=== PATIENT | male | born 1995 | race African-American/Black ===

== ENCOUNTER 2018-03-05 18:18 | Emergency (ER) | payer SELFPAY ==
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
[2018-03-05 18:36] VITALS: BP 131/75
[2018-03-05] MEDS: Lidocaine 2% 20ml Vial ONE (20:00)
[2018-03-05] MEDS: ACETAMINOPHEN 325 MG TABLET PO ONE (20:00)
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
--- NOTE | 2018-03-05 20:17 | Diagnostic Imaging Report ---
MORELIA VALLADARES [facility] [address] [facility] [address] [address] Report Submission Date: Mar 05, 2018 7:51:34 PM CDT Patient Study Name: JANINE PALMA Date: Mar 05, 2018 7:19:11 PM CDT Modality Type: CT\SR Gender: M Description: CT MAXILLOFACIAL W/O D : 94 Institution: [facility] Physician: MORELIA VALLADARES CT facial bones Clinical history: Facial trauma Findings: The mandible intact. Zygomatic arches are intact. Maxillary sinus mcmahon are intact. There is complete opacification of the left maxillary sinus. The nasal bone are intact. The orbital mcmahon are intact. No maxillofacial fracture identified.T here is complete opacification of left maxillary sinus. There are right maxillary sinus mucous retention cysts and sphenoid sinus mucus retention cyst. Impression: 1. No acute maxillofacial fracture. 2. Left maxillary sinusitis Electronically signed on Mar 05, 2018 7:51:34 PM CDT by: Nasir WOMACK
[2018-03-05] MEDS: Lidocaine 2% 20ml Vial IP ONE (20:20)
[2018-03-05] MEDS: CLINDAMYCIN HCL 150 MG CAPSULE PO ONE (20:57)
== END 2018-03-05 21:05 | disposition home or self-care (01) ==
LOC: ED 18:18
DX: S09.90XA Unspecified injury of head, initial encounter (principal); S01.511A Laceration without foreign body of lip, initial encounter; W19.XXXA Unspecified fall, initial encounter; Y92.410 Unspecified street and highway as the place of occurrence of the external cause; Y93.9 Activity, unspecified; Y99.9 Unspecified external cause status
CPT/HCPCS: 70450; 70486; 72125; A9270; 12052; 96372; 99284

== ENCOUNTER 2018-03-11 11:36 | Emergency (ER) | payer SELFPAY ==
[2018-03-11 11:49] VITALS: BP 104/58
--- NOTE | 2018-03-11 11:57 | ED Physician Documentation ---
Suture Removal - HISTORIAN Historian: patient - HPI Stated Complaint: Suture removal Chief Complaint: Suture Removal Additional Information: Sutures placed upper lip in this ER 03/05. - ROS NEURO: denies: headache CONST: no problems - PAST HX Past History: none Allergies/Adverse Reactions: Allergies Allergy/AdvReac Type Severity Reaction Status Date / Time No Known Allergies Allergy Verified 03/11/18 11:48 Home Medications: Ambulatory Orders Medication Instructions Recorded NK 03/11/18 - SOCIAL HX Smoking History: non-smoker - FAMILY HX Family History: no significant history - VITAL SIGNS Vital Signs: Vital Signs Temp Pulse Resp BP Pulse Ox 96.8 F L 77 15 104/58 98 03/11/18 11:38 03/11/18 11:38 03/11/18 11:38 03/11/18 11:38 03/11/18 11:38 - REVIEWED ASSESSMENTS Nursing Assessment Reviewed: Yes Vitals Reviewed: Yes Progress - Progress Progress: Eight nylon sutures removed w/o difficulty. Some super ficial rawness under the scabs. No purulence. Suture Removal Physical Exam - Physical Exam General Appearance: no acute distress, alert Neuro/Vascular/Tendon: motor nml Healing Wound: healing wound, no infection Head/ENT: nml inspection (except sutures and swelling upper lip) Neck/Back: nml inspection Respiratory: no resp.distress Discharge Clincal Impression: Visit for suture removal Referrals: Primary Doctor,No [Primary Care Provider] - 2 Days Condition: Good Disposition: 01 HOME, SELF-CARE Decision to Admit: NO Decision Time: 11:57
== END 2018-03-11 11:56 | disposition home or self-care (01) ==
LOC: ED 11:36
DX: Z48.02 Encounter for removal of sutures (principal)
CPT/HCPCS: 99282